=== PATIENT | male | born 1950 | race Caucasian/White ===

== ENCOUNTER 2020-02-14 14:46 | Emergency (ER) | payer OTHER, MEDICAID ==
[~2020-02-14] VITALS: Ht 149.9 cm; Wt 77.1 kg
[2020-02-14 18:19] VITALS: Ht 149.9 cm; Wt 77.1 kg
[2020-02-14 20:29] LABS: CALCIUM 8.7 mg/dL (8.5-10.1); CARBON DIOXIDE 26.6 mmol/L (21-32); CHLORIDE SERUM 109 mmol/L (98-107); CREATININE SERUM 1.1 mg/dL (0.7-1.3); GFR1 > 60 mL/min; GLUCOSE SERUM 90 mg/dL (74-106); POTASSIUM SERUM 4.5 mmol/L (3.5-5.1); SODIUM SERUM 144 mmol/L (136-145)
[2020-02-14 20:34] LABS: ALKALINE PHOSPHATASE 86 U/L (46-116); ALT/SGPT 27 U/L (16-63); AST/SGOT 11 U/L (15-37); BILIRUBIN TOTAL 0.24 mg/dL (0.20-1.00); TOTAL PROTEIN, SERUM 7.4 g/dL (6.4-8.2)
[2020-02-14 20:47] LABS: ALBUMIN 3.2 g/dL (3.4-5.0)
[2020-02-14 21:43] LABS: BASOPHIL % 1.2 % (0.2-1.5); PLATELET COUNT 263 x10^3mcL (152-348); RED CELL DISTRIBUTION WIDTH 13.9 % (12.1-16.2)
[2020-02-14 22:11] LABS: rbc morphology (normal/abnorm) NORMAL (NORMAL)
[2020-02-14 23:41] VITALS: BP 136/85
== END 2020-02-14 23:41 | disposition short-term general hospital (02) ==
LOC: ED 14:46
PROVIDERS: Emergency Medicine
DX: G91.9 Hydrocephalus, unspecified (principal); Z20.828 Contact with and (suspected) exposure to other viral communicable diseases; Z87.442 Personal history of urinary calculi; Z88.1 Allergy status to other antibiotic agents; Z88.8 Allergy status to other drugs, medicaments and biological substances